=== PATIENT | female | born 1970 | race Caucasian/White ===

== ENCOUNTER → 2020-03-01 11:10 | Outpatient (CLI) | payer BC, SELFPAY ==
--- NOTE | ~2020-03-01 | MM_ITS ---
EXAMINATION: MM screening ros BI w jefferson HISTORY: Screening TECHNIQUE: Craniocaudal and mediolateral oblique 3-D tomosynthesis images were obtained and synthetic 2-D images were generated. CAD analysis was submitted and interpreted. COMPARISON: Comparison to multiple prior studies sequentially, with oldest reviewed study dated 04/22. BREAST PARENCHYMAL COMPOSITION: There are scattered areas of fibroglandular density. FINDINGS: There is no evidence of suspicious mass, calcification, or architectural distortion to sugg est malignancy in either breast. There has been no suspicious interval change. IMPRESSION: 1. No mammographic evidence of malignancy. 2. Recommend routine screening mammography in one year. BI-RADS Category 1: Negative Reviewed, dictated and finalized at location A.
== END ==
PROVIDERS: Visit Provider Nurse Practitioner
DX: Z12.31 Encounter for screening mammogram for malignant neoplasm of breast (principal)
CPT/HCPCS: 77063; 77067

== ENCOUNTER → 2021-06-24 16:43 | Outpatient (CLI) | payer BC, SELFPAY ==
--- NOTE | ~2021-06-24 | MM_ITS ---
EXAMINATION: MM screening [facility] BI w jefferson HISTORY: Screening TECHNIQUE: Craniocaudal and mediolateral oblique 3-D tomosynthesis images were obtained and synthetic 2-D images were generated. CAD analysis was submitted and interpreted. COMPARISON: Comparison to multiple prior studies sequentially, with oldest reviewed study dated 04/23. BREAST PARENCHYMAL COMPOSITION: There are scattered areas of fibroglandular density. FINDINGS: There is focal asymmetry in the upper outer quadrant of the left breast. There is a focal c luster of developing in the lower outer quadrant of the left breast. Calcifications the right breast is stable without evidence for malignancy. IMPRESSION: 1. Focal developing asymmetry and clustered calcifications of the left breast. 2. Additional mammographic views and possible breast ultrasound are recommended. BI-RADS Category 0: Incomplete: Needs additional imaging evaluation. Reviewed, dictated and finalized at location A. IFICATION ENGINEER IMPRESSION: 1. Focal developing asymmetry and clustered calcifications of the left breast. 2. Additional mammographic views and possible breast ultrasound are recommended . BI-RADS Category 0: Incomplete: Needs additional imaging evaluation.
== END ==
PROVIDERS: Visit Provider Nurse Practitioner
DX: Z12.31 Encounter for screening mammogram for malignant neoplasm of breast (principal); R92.8 Other abnormal and inconclusive findings on diagnostic imaging of breast
CPT/HCPCS: 77063; 77067

== ENCOUNTER → 2021-07-19 07:49 | Outpatient (CLI) | payer BC, SELFPAY ==
--- NOTE | ~2021-07-19 | MM_ITS ---
EXAMINATION: MM diagnostic ros LT w jefferson HISTORY: Follow-up left breast calcifications TECHNIQUE: Additional 3-D tomosynthesis images of the left breast were performed and synthetic 2-D im ages were generated. CAD analysis was submitted and interpreted. COMPARISON: Comparison to multiple prior studies sequentially, with oldest reviewed study dated 04/23. BREAST PARENCHYMAL COMPOSITION: Breast composed of scattered areas of fibroglandular density. FINDINGS: There are clustered punctate calcifications in the lower outer quadrant of the left breast posteriorly. These calcifications are relatively monomorphic. No suspicious masses or architectural d istortion. IMPRESSION: 1. Clustered punctate left breast calcifications, lower outer quadrant, likely benign. 2. Recommend 6 month follow-up diagnostic left mammogram. BI-RADS category 3, probably benign findings. Reviewed, dictated and finalized at location A. ONICS ENGINEERING TECHNOLOGIST
== END ==
PROVIDERS: Visit Provider Obstetrics & Gynecology Gynecology
DX: R92.8 Other abnormal and inconclusive findings on diagnostic imaging of breast (principal)
CPT/HCPCS: 77061; 77065; G0279

== ENCOUNTER 2022-07-31 01:42 | Day surgery (SDC) | payer BC, SELFPAY ==
[2022-07-12 14:17] VITALS: BMI 29.9
[2022-07-31 07:21] VITALS: BP 109/73; PULSE 65; RESP 16; TEMP 36.4; O2SAT 99; BMI 35.3
[2022-07-31] MEDS: LACTATED RINGERS 1,000 ML 150 ML IV CONT (07:29)
--- NOTE | 2022-07-31 08:11 | P.PNAN_ITS ---
Anes - Initial Pre Proc Eval Procedure: Operation Date: 07/31/22 08:30 Proposed Procedures p Screening Colonoscopy - Jama De La Cruz MD Date/Time: 07/31/22 08:11 Surgeon: Jama De La Cruz MD Pre Op Diagnosis: Neoplasm Screening Patient Data Age: 52 Gender: F Height: 1.68 m Weight: 99.3 kg Last Vital Signs Temp 97.5 F L 07/31/22 07:21 Pulse 65 07/31/22 07:21 Resp 16 07/31/22 07:21 BP 109/73 07/31/22 07:21 Pulse Ox 99 07/31/22 07:21 O2 Del Method Room Air 07/31/22 07:21 Allergies Allergy/AdvReac Type Severity Reaction Status Date / Time No Known Allergies Allergy Verified 07/31/22 07:15 Home Medications Medication Instructions Recorded Confirmed Type ergocalciferol (vitamin D2) 1,250 1,250 mcg PO DIRECTED 07/12/22 07/31/22 History mcg (50,000 unit) capsule ezetimibe 10 mg tablet 10 mg PO DAILY 07/12/22 07/31/22 History Patient hx anesthesia problems: none Family hx anesthesia problems: none Results Review: All pre-operative results and documents have been reviewed as part of the pre- operative evaluation. [facility] Family History Family History (Updated 04/12/18 @ 09:07 by DOCTOR UNKNOWN) Mother Family history of rheumatoid arthritis Family history of diabetes mellitus in first degree relative Father Family history of diabetes mellitus in first degree relative Family history of malignant neoplasm of esophagus, Onset Age: 62 Patient's father is Social History Social History Smoking status: Never smoker Alcohol intake: never Substance use: never Substance use type: does not use Living arrangements: with family Spiritual care concerns: No Anes - Eval Final PreProcedure Day of Procedure 07/31/22 08:11 Patient weight: obese Heart: regular rate and rhythm Lungs: clear to auscultation Airway: Mallampati scale class II Neurological: alert and oriented Last oral intake: >/= 8 hours ASA classification: II Emergent: no Anesthetic plan: proceed Anesthesia type and monitoring: general GIVS and standard monitoring Results Review: All pre-operative results and documents have been reviewed as part of the pre- operative evaluation. Informed Consent: The patient's anesthetic plan and its attendant risks and benefits were discussed with the patient/family/POA. Questions were solicited and answers provided to the satisfaction of the patient/family/POA.
--- NOTE | 2022-07-31 08:18 | PM.HPGS ---
History of Present Illness History of Present Illness Consent: Risks, benefits, and alternatives have been discussed and questions answered. Patient agrees to proceed with procedure. Chief complaint: Neoplasm Screening Narrative: Chantel Monsalve is a 52 year old female here for first screening colonoscopy Review of Systems Constitutional: Constitutional: Denies headache(s) and Denies weakness Eyes: Eyes: Denies blurry vision ENT: Reports Normal hearing present, Denies headache(s) and Denies neck pain Cardiovascular: Cardiovascular: Denies chest pain and Denies dyspnea Respiratory: Respiratory: Denies dyspnea Gastrointestinal: Gastrointestinal: Reports no additional gastrointestinal complaints Genitourinary: Genitourinary: Denies dysuria Musculoskeletal: Musculoskeletal: Denies neck pain Integumentary/Breasts: Skin/Breast: Denies dry skin Neurologic: Reports Normal hearing present, Denies headache(s) and Denies weakness Psychiatric: Psychiatric: Denies anxiety Endocrine: Endocrine: Denies change in body appearance Hematologic/Lymphatic: Hematologic/Lymphatic: Denies easy bleeding Allergic/Immunologic: Allergic/Immunologic: Denies urticaria PMF Past Medical History Medical History (Updated 07/31/22 @ 08:19 by Jama De La Cruz MD) Colon cancer screening Family History Family History (Updated 04/12/18 @ 09:07 by DOCTOR UNKNOWN) Mother Family history of rheumatoid arthritis Family history of diabetes mellitus in first degree relative Father Family history of diabetes mellitus in first degree relative Family history of malignant neoplasm of esophagus, Onset Age: 62 Patient's father is Social History Social History Smoking status: Never smoker Alcohol intake: never Substance use: never Substance use type: does not use Living arrangements: with family Spiritual care concerns: No Meds Home Medications and Allergies Home Medications Medication Instructions Recorded Confirmed Type ergocalciferol (vitamin D2) 1,250 1,250 mcg PO DIRECTED 07/12/22 07/31/22 History mcg (50,000 unit) capsule ezetimibe 10 mg tablet 10 mg PO DAILY 07/12/22 07/31/22 History Allergies Allergy/AdvReac Type Severity Reaction Status Date / Time No Known Allergies Allergy Verified 07/31/22 07:15 Vital Signs Vital Signs - 24 hr 07/31/22 07:21 Temperature 97.5 F L Pulse Rate 65 Respiratory Rate 16 Blood Pressure 109/73 Pulse Oximetry 99 Oxygen Delivery Room Air Exam Const: General: comfortable and no acute distress HENMT: Face/Nose/Sinus: Normal nares present Eyes: General: appearance normal, both eyes and all related structures Neck: Neck: no JVD Resp: Auscultation: clear to auscultation bilaterally Cardio: Rate: regular rate Rhythm: regular rhythm GI: Inspection: non-distended GI Palp: Yes Soft to palpation Skin: General skin exam: normal color Neuro: General: gait normal Speech: normal speech Extrem: General: normal to inspection Psych: Mental Status: mental status grossly normal Assessment and Plan Assessment and plan (1) Colon cancer screening: Code(s): Z12.11 - Encounter for screening for malignant neoplasm of colon Status: Acute Assessment and Plan: colonoscopy
[2022-07-31 08:38] VITALS: BP 96/52; PULSE 63; RESP 17; O2SAT 97
[2022-07-31 08:48] VITALS: BP 100/64; PULSE 62; RESP 19; O2SAT 97
[2022-07-31 08:58] VITALS: BP 102/69; PULSE 60; RESP 21; O2SAT 100
== END 2022-07-31 09:03 | disposition home or self-care (01) ==
PROVIDERS: PCP Family Medicine; Visit Provider Internal Medicine Gastroenterology
PROC: 0DJD8ZZ Inspection of Lower Intestinal Tract, Via Natural or Artificial Opening Endoscopic (ICD-10-PCS; CPT 45378; principal; 2022-07-31 08:30)
DX: Z12.11 Encounter for screening for malignant neoplasm of colon (principal); K64.8 Other hemorrhoids; E66.9 Obesity, unspecified; Z68.35 Body mass index [BMI] 35.0-35.9, adult
CPT/HCPCS: 45378; J2704; J7120

== ENCOUNTER → 2022-08-14 15:30 | Outpatient (CLI) | payer BC, SELFPAY ==
--- NOTE | ~2022-08-14 | US_ITS ---
EXAMINATION: US thyroid DATE: 08/14/2022 15:58 INDICATION: Disorder of thyroid, unspecified. TECHNIQUE: Multiple ultrasound images of the thyroid were obtained. COMPARISON: Thyroid ultrasound 05/02/2019 FINDINGS: The right thyroid lobe measures 4.4 x 2.0 x 1.6 cm. The left thyroid lobe measures 4.0 x 1.5 x 1.6 c m. In the right thyroid lobe, there is a 10 mm predominantly solid, hypoechoic, wider than tall nodu le with irregular margin without echogenic foci (TI-RADS TR4), decreased from 16 mm on 05/02/19. In t he right thyroid lobe, there is an 8 mm solid, hypoechoic, wider than tall nodule with smooth margin without echogenic foci (TR4). In the left thyroid lobe, there is a 10 mm solid, isoechoic, wider than tall nodule with ill-defined margin without echogenic foci (TR3), decreased from 13 mm on 05/02/19. IMPRESSION: 1. Multinodular goiter. Thyroid ultrasound is recommended in 2 years. Reviewed, dictated and finalized at location A. RAL STERILIZATION TECHNICIAN
--- NOTE | ~2022-08-14 | MM_ITS ---
EXAMINATION: MM screening ros BI w jefferson HISTORY: Screening mammogram TECHNIQUE: Craniocaudal and mediolateral oblique 3-D tomosynthesis images were obtained and synthetic 2-D images were generated. CAD analysis was submitted and interpreted. COMPARISON: 07/19/2021 diagnostic left mammogram 07/11/2021, 03/01/2020, 08/21/2018 bilateral screening mammogram examinations BREAST PARENCHYMAL COMPOSITION: There are scattered areas of fibroglandular density. FINDINGS: In the posterior lower outer left breast there is an approximately 5.8 mm mass with grouped calcifications. Diagnostic left mammogram and left breast ultrasound examination are recommended for more definitive evaluation. Otherwise there is no evidence of suspicious mass, calcification, or architectural distortion to sugg est malignancy in either breast. There has been no other suspicious interval change. IMPRESSION: 1. 5.8 mm posterior lower outer left breast mass with grouped microcalcifications 2. Diagnostic left mammogram and left breast ultrasound examination are recommended BI-RADS Category 0: Incomplete: Needs additional imaging evaluation. Reviewed, dictated and finalized at location A. ET PRESS OPERATOR HELPER IMPRESSION: 1. 5.8 mm posterior lower outer left breast mass with grouped microcalcificatio ns 2. Diagnostic left mammogram and left breast ultrasound examination are recomme nded BI-RADS Category 0: Incomplete: Needs additional imaging evaluation.
== END ==
PROVIDERS: PCP Family Medicine; Visit Provider Nurse Practitioner
DX: Z12.31 Encounter for screening mammogram for malignant neoplasm of breast (principal); N63.23 Unspecified lump in the left breast, lower outer quadrant; R92.0 Mammographic microcalcification found on diagnostic imaging of breast; E04.2 Nontoxic multinodular goiter
CPT/HCPCS: 76536; 77063; 77067

== ENCOUNTER → 2022-08-31 08:58 | Outpatient (CLI) | payer BC, SELFPAY ==
--- NOTE | ~2022-08-31 | MMUS_ITS ---
EXAMINATION: MM diagnostic ros LT w jefferson, US breast LT limited HISTORY: Left lower quadrant left breast mass with grouped microcalcifications TECHNIQUE: Additional 3-D tomosynthesis images of the left breast were performed and synthetic 2-D im ages were generated. Magnification views of left breast. CAD analysis was submitted and interpreted. High resolution lower outer quadrant left breast ultrasound was performed. COMPARISON: 08/14/2022 bilateral screening mammogram 07/19/2021 diagnostic left mammogram 06/24/2021 bilateral screening mammogram 03/01/2020 bilateral screening mammogram FINDINGS: MAMMOGRAPHIC FINDINGS: There is increase in number of indeterminate grouped microcalcifications in the posterior lower outer quadrant of the left breast since prior examinations. Stereotactic biopsy is recommended. ULTRASOUND: No suspicious mass or shadowing is detected. 3:00 8 cm from nipple: Parallel circumscribed sonolucency measuring 2 x 5.4 x 5.7 mm, without interna l vascularity or posterior shadowing 4:00 4 cm from nipple: Circumscribed 3.5 x 3.5 mm sonolucency without internal vascularity or posteri or shadowing. IMPRESSION: 1. Increasing number of grouped microcalcifications in the posterior lower outer left breast 2. Stereotactic biopsy is recommended BI-RADS category 4, suspicious findings. Dr. Oliva telephoned the report on 08/31/2022 at 0943 hours to Rosemary Reviewed, dictated and finalized at location A. NSIC PSYCHIATRIST IMPRESSION: 1. Increasing number of grouped microcalcifications in the posterior lower oute r left breast 2. Stereotactic biopsy is recommended BI-RADS category 4, suspicious findings. Dr. Oliva telephoned the report on 08/31/2022 at 0943 hours to Rosemary
== END ==
PROVIDERS: PCP Family Medicine; Visit Provider Obstetrics & Gynecology Gynecology
DX: R92.8 Other abnormal and inconclusive findings on diagnostic imaging of breast (principal)
CPT/HCPCS: 76642; 77061; 77065; G0279

== ENCOUNTER → 2023-09-07 14:46 | Outpatient (CLI) | payer BC, SELFPAY ==
--- NOTE | ~2023-09-07 | MM_ITS ---
EXAMINATION: MM screening [facility] BI w jefferson HISTORY: Screening mammogram TECHNIQUE: Craniocaudal and mediolateral oblique 3-D tomosynthesis images were obtained and synthetic 2-D images were generated. CAD analysis was submitted and interpreted. COMPARISON: 08/31/2022, 08/14/2022, 07/19/2021, 06/24/2021 BREAST PARENCHYMAL COMPOSITION: There are scattered areas of fibroglandular density. FINDINGS: RIGHT BREAST: There are possible obscured masses in the middle third (craniocaudal tomosynthesis imag e 54/96) and the posterior third (craniocaudal tomosynthesis image 36/96) of the right breast. In add ition, there is possible architectural distortion in the posterior third of the outer breast best kai reciated 9 cm from the nipple on craniocaudal tomosynthesis image 38/96. LEFT BREAST: No suspicious mass, calcification, or architectural distortion are identified to suggest malignancy. There has been no suspicious interval change. IMPRESSION: 1. Right breast findings as above. 2. Additional mammographic views and possible breast ultrasound are recommended. BI-RADS Category 0: Incomplete: Needs additional imaging evaluation. Reviewed, dictated and finalized at location A. INUOUS CRUSHER OPERATOR IMPRESSION: 1. Right breast findings as above. 2. Additional mammographic views and possible breast ultrasound are recommended . BI-RADS Category 0: Incomplete: Needs additional imaging evaluation.
== END ==
PROVIDERS: PCP Nurse Practitioner; Visit Provider Nurse Practitioner
DX: Z12.31 Encounter for screening mammogram for malignant neoplasm of breast (principal); R92.8 Other abnormal and inconclusive findings on diagnostic imaging of breast
CPT/HCPCS: 77063; 77067

== ENCOUNTER 2023-10-04 08:26 | Outpatient (CLI) | payer BC, SELFPAY ==
--- NOTE | ~2023-10-04 | MMUS_ITS ---
EXAMINATION: MM diagnostic ros RT w jefferson, US breast RT complete HISTORY: September 07, 2023 screening mammographic abnormalities TECHNIQUE: Additional 3-D tomosynthesis images of the right breast were performed and synthetic 2-D i mages were generated. CAD analysis was submitted and interpreted. High resolution complete right [facility] [facility] ultrasound examination including all 4 quadrants and subareolar area was performed. COMPARISON: September 07, 2023 bilateral screening mammogram BREAST PARENCHYMAL COMPOSITION: There are scattered areas of fibroglandular density. FINDINGS: MAMMOGRAPHIC FINDINGS: Multiple scattered subcentimeter nodular masses are suggested, the largest approximately 6 mm. ULTRASOUND: 1:00 5 cm from nipple: 4.8 x 4.6 x 5.4 mm circumscribed sonolucency with through transmission posteri or enhancement, no internal vascularity, consistent with simple cyst 1:00 4 cm from nipple: A cluster of small cysts is noted. The largest approximately 1.7 x 6 mm. 4:00 4.5 cm from nipple: Probable contiguous small cysts 8:00 3 cm from nipple: Approximately 3.4 x 7.4 x 9 mm multi septated cyst 9:00 4 cm from nipple: Irregular and typed parallel approximately 2.2 mm wide 3.2 mm deep hypoechoic lesion. The irregular margins and the antiparallel configuration are suspicious. Ultrasound-guided bi opsy is recommended. 10-11:00 4.5 cm from nipple: Irregular hypoechoic roughly 7 x 16 mm hypoechoic lesion; ultrasound-oxana ded biopsy is recommended IMPRESSION: 1. Suspicious masses at 9:00 4 cm from nipple and 10-11:00 4.5 cm from nipple 2. Ultrasound-guided biopsy of the two (9:00 and 10-11:00) lesions is recommended BI-RADS category 4, suspicious findings. Reviewed, dictated and finalized at location A. IMPRESSION: 1. Suspicious masses at 9:00 4 cm from nipple and 10-11:00 4.5 cm from nipple 2. Ultrasound-guided biopsy of the two (9:00 and 10-11:00) lesions is recommen ded BI-RADS category 4, suspicious findings.
== END 2023-10-04 08:27 ==
LOC: MICIMG 08:27
PROVIDERS: PCP Nurse Practitioner; Visit Provider Nurse Practitioner
DX: R92.8 Other abnormal and inconclusive findings on diagnostic imaging of breast (principal)
CPT/HCPCS: 76641; 77061; 77065; G0279